=== PATIENT | female | born 1950 | race Caucasian/White ===

== ENCOUNTER → 2023-05-30 09:51 | Outpatient (REF) | payer MEDICARE, SELFPAY | LOC: RAD 09:51 | PROVIDERS: ATTENDING PHYSICIAN Obstetrics & Gynecology; FAMILY PHYSICIAN Family Medicine | DX: Z78.0 Asymptomatic menopausal state (principal) | CPT/HCPCS: 77080 ==

== ENCOUNTER 2023-06-01 23:26 | Emergency (ER) | payer MEDICARE, SELFPAY ==
[2023-06-01 23:28] VITALS: BP 134/76
--- NOTE | 2023-06-02 00:11 | ED.GENMED ---
History of Present Illness
General
Chief Complaint: Abdominal Pain
Source: patient
Time Seen by Provider: 06/02/23 00:04
Travel History
Have you had any contact with someone who has COVID-19?: No
Do you have any symptoms of coronavirus? Fever > 100 degrees, chills, cough, shortness of breath, sore throat, loss of taste or smell, muscle aches, or headache?: No
History of Present Illness
History of Present Illness:
73-year-old female with no significant past medical history presenting the emergency department for evaluation of right-sided flank pain that started yesterday, today pain was more in the right lower part of her abdomen accompanied with some nausea
but no and a low-grade fever prompting her to come to the ER tonight. Patient did not take anything for her symptoms prior to arrival but states she tried to increase her fluid intake. She denies any known sick contacts, recent travel or recent
antibiotics. Patient denies any history of kidney stones but states that she usually has microscopic hematuria. Patient has no other concerns at time.
Past History
Past History
ED Past Medical History: Other ('Small bowel bacterial overgrowth')
ED Past Surgical History: None
Social History
Tobacco: Non-smoker
Alcohol: None
Drug: None
Personal:
Living: with family
Family History
Family History: Negative Diabetes, Hypertension, Early CAD, Asthma or Cancer
Review of Systems
Review of Systems
All Other Systems: ROS reviewed and negative except as documented in HPI and ROS
Phy Exam
Physical Exam
Physical Exam:
GENERAL: Alert , in no apparent distress
EYE: clear conjunctiva b/l
HEAD: NCAT
ENT: o/p clr, mmm.
CARDIAC: Regular rate and rhythm .
LUNGS: Clear breath sounds bilaterally, no acute respiratory distress, no wheezes/rales/rhonchi
ABDOMEN: Soft, without focal tenderness, no r/g, mild right flank tenderness, negative Fernandez sign, no tenderness at McBurney's point
NEUROLOGICAL: Alert and oriented
SKIN: Warm and dry, skin intact.
MUSCULOSKELETAL: well perfused.
PSYCH: Normal and appropriate interaction.
Scores
Heart Failure Risk
Heart Failure Risk Score: Not Applicable
Heart Score for Chest Pain Patients
STEMI patient?: Not applicable
Withdrawal Assessment of Alcohol
Withdrawal Assessment Completed?: Not applicable
Course
Orders/Labs/Results
Orders:
Orders
06/02/23 00:11
CT Abd/pelvis W Iv Cont Urgent
Comment:
Reason For Exam: right flank/abd pain
06/02/23 00:30
Complete Blood Count/With Diff Urgent
Comprehensive Metabolic Panel Urgent
Lipase Urgent
Urinalysis Reflex To Culture Urgent
Date Specimen was Collected: 06/02/23
Time Specimen was Collected: 00:11
Urine Microscopic Reflex Cult Urgent
Urine Culture Urgent
CORINE Source: U
Specimen Description:
Date Specimen was Collected: 06/02/23
Time Specimen was Collected: 00:11
Abnormal Lab Results
06/02/23
00:30
Abs Immat Gran (auto) 0.1 H 10^3/uL
(0-0.05)
Absolute Lymphs (auto) 0.5 L 10^3/uL
(1.2-3.4)
Absolute Monos (auto) 0.8 H 10^3/uL
(0.1-0.6)
Immature Gran % 1.0 H %
(0-0.5)
Lymphocytes % 9.2 L %
(20.5-51.1)
Monocytes % 15.7 H %
(1.7-9.3)
Sodium 133 L mmol/L
(135-145)
Glucose 112 H mg/dl
(70-99)
Urine Ketones 3+ A
(Negative)
Ur Occult Blood Reflex 4+ A
(Negative)
Leukocyte Esterase Rfl Trace A
(Negative)
Urine RBC 11-15 A /HPF
(0-2)
Urine Bacteria (Reflex) Moderate A
(Negative)
06/02/23 00:30
06/02/23 00:30
Vital Signs
Initial and Last Documented VS:
Initial Vital Signs
Temp Pulse Resp BP Pulse Ox
99.3 F 95 18 134/76 99
06/01/23 23:28 06/01/23 23:28 06/01/23 23:28 06/01/23 23:28 06/01/23 23:28
Last Documented Vital Signs
Temp Pulse Resp BP Pulse Ox
99.3 F 95 18 134/76 99
06/01/23 23:28 06/01/23 23:28 06/01/23 23:28 06/01/23 23:28 06/01/23 23:28
MDM/Problems Addressed
Differential Diagnosis Includes:
Renal/ureteral colic, UTI, appendicitis, cholecystitis
MDM/Problems Addressed:
73-year-old female present emergency department for evaluation of right-sided flank pain x 1 day, today pain started to go more into the right lower abdomen. Patient's exam is overall reassuring and while she does have some mild right flank
tenderness there is no rebound or guarding and abdomen is overall soft. Patient is declining anything for pain at this time. Will check labs, urine and CT imaging. Reassessment following.
*Pulse Oximetry
Patient hypoxic: no
*Critical Care Note
Total Time (30-74mins, 75-104mins- exclusive of procedures): Not Applicable
Data Reviewed
Review of Other/Old Records Reveals: Labs, Records and Radiology Studies (Abdominal ultrasound in October 2022 did not reveal any acute pathologies nor show any evidence of gallstones)
Patient Management
Escalation/DeEscalation of care consider admission/obs:
Patient CT scan shows nonspecific fluid within the bowel questionable for possible enteritis. Patient remains afebrile, no leukocytosis and otherwise reassuring labs. Patient feels comfortable being discharged home. Encourage close follow-up with
primary care as well as GI if need be. Aware of return precautions.
ED Attending Note
-
Portions of this chart may have been created with voice recognition software.� Occasional wrong word or��sound alike� substitutions may have occurred due to the inherent limitations of voice recognition software.
Discharge Plan
Departure
Patient Disposition: Home (Routine Discharge)
Date of Disposition: 06/02/23
Time of Disposition: 02:26
Patient with high blood pressure during this ER visit?: No
Discharge Problem:
Abdominal pain
Instructions: Abdominal Pain
Prescriptions:
No Action
Xifaxan:
550 mg PO BID
Referrals:
Shari Dexter MD [Family Provider] -
Interventions
Interventions:
*Risk Screen - Suicide Last Done: 06/01/23 23:28
*General Assessment Last Done: 06/01/23 23:28
*Neglect/Abuse Screening Last Done: 06/01/23 23:28
ED- Fall Risk Assessment Last Done: 06/01/23 23:28
*ED COVID-19 Vaccine History Last Done: 06/01/23 23:28
GX-Ymzriy-Gtuxgzudhc Assessment Last Done: 06/02/23 00:32
[2023-06-02 00:40] LABS: Urine Albumin Negative (Neg - Trace); Urine Bilirubin Negative (Negative); Urine Character Clear (Clear); Urine Color Yellow; Urine Glucose Negative (Negative); Urine Ketone 3+ (Negative); Urine Leukocyte Trace (Negative); Urine Nitrite Negative (Negative); Urine Occult Blood 4+ (Negative); Urine Urobilinogen Negative (Neg - 1+)
[2023-06-02 00:50] LABS: ALT (SGPT) 20 U/L (0-35); AST (SGOT) 31 U/L (14-36); Albumin 4.7 g/dl (3.5-5.0); Alkaline Phosphatase 84 U/L (38-126); Blood Urea Nitrogen 15 mg/dl (7-17); Calcium 9.3 mg/dl (8.4-10.2); Carbon Dioxide 22 mmol/L (22-30); Chloride 104 mmol/L (98-107); Glucose 112 mg/dl (70-99); Lipase 75 U/L (23-300); Potassium 4.1 mmol/L (3.5-5.1); Sodium 133 mmol/L (135-145); Total Bilirubin 0.4 mg/dl (0.2-1.3); Total Protein 7.5 g/dl (6.3-8.2); eGFR > 60.00
[2023-06-02 00:55] LABS: Urine Squamous Cell 16-20 /LPF (Few)
[2023-06-02 00:56] LABS: Urine Bacteria Moderate (Negative); Urine Mucus Moderate
[2023-06-02 01:39] LABS: % Basophils 1.2 % (0-2); % Eosinophils 0.2 % (0-6); % Lymphocytes 9.2 % (20.5-51.1); % Monocytes 15.7 % (1.7-9.3); % Neutrophils 72.7 % (42.2-75.2); Absolute Basophils 0.1 10^3/uL (0-0.2); Absolute Immature Granulocytes 0.1 10^3/uL (0-0.05); Absolute Lymphocytes 0.5 10^3/uL (1.2-3.4); Absolute Monocytes 0.8 10^3/uL (0.1-0.6); Absolute Neutrophils 3.8 10^3/uL (1.4-6.5); Hematocrit 37.8 % (37.0-47.0); Mean Corp Hgb Conc. 34.4 g/dL (33.0-37.0); Mean Corpuscular Hgb 30.7 pg (27.0-31.0); Mean Corpuscular Volume 89.2 fL (81.0-99.0); Mean Platelet Volume 10.2 fL (7.4-10.4); Nucleated Red Blood Cells % 0 %; Platelet Count 238 10^3/uL (130-400); Red Blood Cell Count 4.24 10^6/uL (4.20-5.40); Red Cell Dist. Width 13.2 % (11.5-14.5); White Blood Cell Count 5.2 10^3/uL (4.8-10.8)
== END 2023-06-02 02:30 | disposition home or self-care (01) ==
LOC: EMR 23:26
PROVIDERS: Physician Assistant Medical; EMERGENCY PHYSICIAN Student in an Organized Health Care Education/Training Program; FAMILY PHYSICIAN Family Medicine
DX: R10.9 Unspecified abdominal pain (principal); R31.29 Other microscopic hematuria
CPT/HCPCS: 99284; 74177; 80053; 81003; 81015; 83690; 85025; 87086; Q9967

== ENCOUNTER → 2023-12-18 15:28 | Outpatient (REF) | payer MEDICARE, SELFPAY | LOC: WDC 15:28 | PROVIDERS: ATTENDING PHYSICIAN Family Medicine | DX: Z12.31 Encounter for screening mammogram for malignant neoplasm of breast (principal) | CPT/HCPCS: 77063; 77067 ==

== ENCOUNTER → 2023-12-27 09:52 | Outpatient (REF) | payer MEDICARE, SELFPAY | LOC: WDC 09:52 | PROVIDERS: ATTENDING PHYSICIAN Family Medicine | DX: R92.8 Other abnormal and inconclusive findings on diagnostic imaging of breast (principal); N63.42 Unspecified lump in left breast, subareolar | CPT/HCPCS: 88305; 19083; 76642; 88341; 88342; 88360; A4648 ==

== ENCOUNTER 2024-09-09 11:13 | Outpatient (RCR) | payer MEDICARE, SELFPAY | END 2024-09-09 23:59 | disposition home or self-care (01) | LOC: RPT 11:13 | PROVIDERS: ATTENDING PHYSICIAN Urology; FAMILY PHYSICIAN Family Medicine | DX: R39.89 Other symptoms and signs involving the genitourinary system (principal); N39.3 Stress incontinence (female) (male); N95.8 Other specified menopausal and perimenopausal disorders; M62.89 Other specified disorders of muscle; Z73.6 Limitation of activities due to disability; Z85.3 Personal history of malignant neoplasm of breast | CPT/HCPCS: 97110; 97162; 97530 ==